=== PATIENT | male | born 1975 | race Caucasian/White ===

== ENCOUNTER 2021-04-10 13:00 | Emergency (ER) | payer OTHER ==
[2021-04-10 14:29] LABS: BASOPHIL 0.3 % (0-2); EOSINOPHIL 0.1 % (0-5); HCT 51.5 % (42.0-52.0); HGB 18.7 g/dl (13.2-18.0); LYMPHOCYTE 14.6 % (15-48); MCH 33.6 pg (25.0-31.0); MCHC 36.3 g/dL (32.0-36.0); MCV 92.6 fL (78.0-100.0); MONOCYTE 8.9 % (0-12); MPV 9.6 fL (6.0-9.5); NEUTROPHIL 75.7 % (41-80); NRBC 0; PLT 420 K/uL (150-400); RBC 5.56 M/uL (4.70-6.00); RDW 12.7 % (11.5-14.0); WBC 14.3 K/uL (4.0-10.5)
[2021-04-10 14:45] LABS: ALBUMIN 4.6 g/dL (3.4-5.0); BILIRUBIN - TOTAL 0.7 mg/dL (0.2-1.0); BUN/CREAT RATIO (CALC) 20.2 RATIO; CREATININE 0.89 mg/dL (0.67-1.17); GLOBULIN (CALCULATION) 4.8 g/dL; POTASSIUM 4.3 mmol/L (3.5-5.1); TOTAL PROTEIN 9.4 g/dL (6.4-8.2)
[2021-04-10 18:28] LABS: BILIRUBIN NEGATIVE (NEGATIVE); BLOOD NEGATIVE Ery/uL (NEGATIVE); CLARITY CLEAR (CLEAR); COLOR YELLOW (YELLOW); GLUCOSE (U) NORMAL (NORMAL); LEUKOCYTES NEGATIVE Leu/uL (NEGATIVE); NITRITE NEGATIVE (NEGATIVE); PROTEIN NEGATIVE (NEGATIVE); pH 6.5 (5.0-9.0)
== END 2021-04-10 20:52 | disposition home or self-care (01) ==
LOC: FER 13:00
PROVIDERS: Nurse Practitioner Family
DX: K59.00 Constipation, unspecified (principal); R11.2 Nausea with vomiting, unspecified; I10 Essential (primary) hypertension; F17.200 Nicotine dependence, unspecified, uncomplicated; Z88.0 Allergy status to penicillin; Z88.5 Allergy status to narcotic agent
CPT/HCPCS: 36415; 74022; 80053; 81003; 82150; 83690; 85025; J2405; J7030; Q9967